=== PATIENT | male | born 1975 | race Caucasian/White ===

== ENCOUNTER 2018-04-26 01:40 | Emergency (ER) | payer BC ==
[2018-04-26] MEDS ORDERED: ALPRAZolam TAB* 0.5 MG PO ONE (01:58)
[2018-04-26 02:16] LABS: ABS Basophils 0.1 10^3/ul (0-0.2); ABS Eosinophils 0.2 10^3/ul (0-0.6); ABS Lymphocytes 3.8 10^3/ul (1.0-4.8); ABS Monocytes 0.7 10^3/ul (0-0.8); ABS Nucleated RBC 0 10^3/ul; Eosinophil % 2.4 % (0-6); Hematocrit 38 % (42-52); Hemoglobin 12.9 g/dl (14.0-18.0); Mean Corpuscular HGB Conc 34 g/dl (31-36); Mean Corpuscular Hemoglobin 31 pg (27-31); Mean Corpuscular Volume 91 fL (80-94); Mean Platelet Volume 7.6 um3 (7.4-10.4); Nucleated Red Blood Cells % 0; Platelet Count 318 10^3/ul (150-450); Red Blood Count 4.18 10^6/ul (4.00-5.40); Red Cell Distribution Width 13 % (10.5-15); White Blood Count 7.7 10^3/ul (3.5-10.8)
[2018-04-26 02:37] LABS: EGFR Non-African American 73.5 (>60)
--- NOTE | 2018-04-26 03:12 | ED ---
J Luis Mcdaniel Angela, scribed for Chely Rojas MD on 04/26/18 at 0154 . Shortness of Breath - HPI Summary HPI Summary: This pt is a 42 y/o presenting to [facility] c/o difficulty catching his breath this morning. Pt states he woke up this morning and suddenly it was hard to catch his breath. He notes he went to bed feeling fine last night. He states he tried going back to sleep but the same thing happened again. Denies any pain, chest pain, fever. Pt currently states feeling the same with SOB. He does admit to being anxious. Pt reports he used to take Lorazepam and Abilify for anxiety in the past, but states he has learned to deal with his anxiety and no longer takes it. Denies hx of asthma. Denies tobacco use. Pt is currently on Methylphenidate. He lives at home with his and 4 kids. - History of Current Complaint Hx Obtained From: Patient Onset/Duration: Sudden Onset, Still Present Timing: Constant Current Severity: Moderate Aggrevating Factors: Nothing Alleviating Factors: Nothing Associated Signs & Symptoms: Negative - Allergy/Home Medications Allergies/Adverse Reactions: Allergies Allergy/AdvReac Type Severity Reaction Status Date / Time No Known Allergies Allergy Unverified 07/09/13 10:30 Home Medications: Home Medications Methylphenidate HCl [Ritalin] 5 mg PO 04/26/18 [History] PMH/Surg Hx/FS Hx/Imm Hx Endocrine/Hematology History: Denies: Hx Diabetes, Hx Thyroid Disease Cardiovascular History: Denies: Hx Hypercholesterolemia, Hx Hypertension, Hx Pacemaker/ICD, Hx Peripheral Vascular Disease Respiratory History: Denies: Hx Asthma History: Denies: Hx Renal Disease Musculoskeletal History: Denies: Hx Arthritis, Hx Rheumatoid Arthritis, Hx Osteoporosis Sensory History: Denies: Hx Cataracts, Hx Contacts or Glasses, Hx Glaucoma, Hx Hearing Aid Opthamlomology History: Denies: Hx Cataracts, Hx Contacts or Glasses, Hx Glaucoma Neurological History: Denies: Hx Headaches, Hx Seizures, Hx Transient Ischemic Attacks (TIA) Psychiatric History: Reports: Hx Anxiety, Hx Attention Deficit Hyperactivity Disorder Denies: Hx Depression, Hx Panic Disorder - Surgical History Surgery Procedure, Year, and Place: APPENDIX,REMOVE CYST IN RIGHT FEMUR X2 20+ YRS AGO, Infectious Disease History: No Infectious Disease History: Denies: Traveled Outside the [place] in Last 30 Days - Family History Known Family History: Negative: Cardiac Disease, Hypertension, Diabetes - Social History Lives: With Family Alcohol Use: None Hx Substance Use: No Hx Tobacco Use: No Review of Systems Negative: Fever, Chills Negative: Chest Pain Positive: Shortness Of Breath Genitourinary: Negative Musculoskeletal: Negative Skin: Negative Positive: Anxious All Other Systems Reviewed And Are Negative: Yes Physical Exam - Summary Physical Exam Summary: VITAL SIGNS: Reviewed. GENERAL: Patient is a well-developed and nourished male who is lying comfortable in the stretcher. Patient is not in any acute respiratory distress. HEAD AND FACE: No signs of trauma. No ecchymosis, hematomas or skull depressions. No sinus tenderness. EYES: PERRLA, EOMI x 2, No injected conjunctiva, no nystagmus. EARS: Hearing grossly intact. Ear canals and tympanic membranes are within normal limits. MOUTH: Oropharynx within normal limits. NECK: Supple, trachea is midline, no adenopathy, no JVD, no carotid bruit, no c- spine tenderness, neck with full ROM. CHEST: Symmetric, no tenderness at palpation LUNGS: Clear to auscultation bilaterally. No wheezing or crackles. CVS: Regular rate and rhythm, S1 and S2 present, no murmurs or gallops appreciated. ABDOMEN: Soft, non-tender. No signs of distention. No rebound no guarding, and no masses palpated. Bowel sounds are normal. EXTREMITIES: FROM in all major joints, no edema, no cyanosis or clubbing. NEURO: Alert and oriented x 3. No acute neurological deficits. Speech is normal and follows commands. SKIN: Dry and warm PSYCH: anxious appearing Triage Information Reviewed: Yes Vital Signs On Initial Exam: Initial Vitals Temp Pulse Resp BP Pulse Ox 98 F 54 20 141/83 98 04/26/18 01:42 04/26/18 01:42 04/26/18 01:42 04/26/18 01:42 04/26/18 01:42 Vital Signs Reviewed: Yes Diagnostics - Vital Signs Vital Signs Temp Pulse Resp BP Pulse Ox 04/26/18 01:42 98 F 54 20 141/83 98 - Laboratory Result Diagrams: 04/26/18 02:04 04/26/18 02:04 Lab Statement: Any lab studies that have been ordered have been reviewed, and results considered in the medical decision making process. - Radiology Chest XR Xray Interpretation: No Acute Changes - No acute process. Pending official radiology report. Radiology Interpretation Completed By: ED Physician Re-Evaluation - Re-Evaluation First Eval Re-Evaluation Time: 02:51 Change: Improved Comment: Pt feels better. He will be discharged home. Course/Dx - Course Assessment/Plan: Pt is a 42 y/o who presents with difficulty catching his breath this morning. Pt states he woke up this morning and suddenly it was hard to catch his breath. He notes he went to bed feeling fine last night. He states he tried going back to sleep but the same thing happened again. Denies any pain , chest pain, fever. Pt currently states feeling the same with SOB. He does admit to being anxious. Pt reports he used to take Lorazepam and Abilify for anxiety in the past, but states he has learned to deal with his anxiety and no longer takes it. Pt is saturating at 100% on room air. Chest XR shows no acute process. Pt has normal lab results. Pt reports feeling better. He states he will take Xanax at home. Pt will be discharged home with follow up from his PCP. He is instructed to return to the ED for any worsening symptoms. - Diagnoses Provider Diagnoses: Anxiety Discharge - Sign-Out/Discharge Documenting (check all that apply): Discharge/Admit/Transfer - Discharge - Discharge Plan Condition: Stable Disposition: HOME Patient Education Materials: Anxiety (ED) Referrals: Minh Glass MD [Primary Care Provider] - Additional Instructions: Please follow up with your primary care provider. RETURN TO EMERGENCY DEPARTMENT FOR ANY NEW OR WORSENING SYMPTOMS. The documentation as recorded by the J Luis smith Angela accurately reflects the service I personally performed and the decisions made by me, Chely Rojas MD.
[2018-04-26 03:23] VITALS: BP 122/93
--- NOTE | 2018-04-26 07:33 | RAD ---
INDICATION: Shortness of breath. COMPARISON: There are no prior studies available for comparison. TECHNIQUE: A portable view of the chest was obtained. FINDINGS: Cardiac and mediastinal contours appear to be within normal limits. The lungs are clear. No pleural effusion is seen. IMPRESSION: NO EVIDENCE FOR ACUTE DISEASE.
== END 2018-04-26 03:20 | disposition home or self-care (01) ==
LOC: ED 01:40
DX: F41.9 Anxiety disorder, unspecified (principal); R06.02 Shortness of breath; F90.9 Attention-deficit hyperactivity disorder, unspecified type
CPT/HCPCS: 36415; 71045; 80053; 85025; 99282; A9270-GY

== ENCOUNTER 2018-12-16 03:44 | Emergency (ER) | payer BC ==
[2018-12-16] MEDS ORDERED: Dexamethasone Oral Solution* 1 MG/ML 10 ML UDC (10 MG) PO ONE (03:59)
[2018-12-16] MEDS ORDERED: Ibuprofen PED LIQ 100 MG/5 ML UDC PO ONE (03:59)
[2018-12-16] MEDS ORDERED: Lidocaine 2% VISCOUS* 15 ML UDC PO ONE (03:59)
--- NOTE | 2018-12-16 04:02 | ED ---
Throat Pain/Nasal Congestion - HPI Summary HPI Summary: This patient is a 43 year old male presenting to [facility] with a chief complaint of throat swelling since waking up this morning. Patient states that he woke up with the sx and was unable to swallow due to the swelling. Patient states he was concerned that the swelling would progress and would block his airway and presented to the ED. Currently, patient states he can breath normally. The pain is rated 4/10 in severity. Symptoms aggravated by nothing. Symptoms alleviated by nothing. Patient denies cough, nasal congestion, rhinorrhea. - History of Current Complaint Chief Complaint: EDThroatPain Time Seen by Provider: 12/16/18 03:49 Hx Obtained From: Patient Onset/Duration: Lasting Hours, Still Present Severity: Mild Associated Signs And Symptoms: Negative: Sinus Discomfort, Nasal Discharge - Allergies/Home Medications Allergies/Adverse Reactions: Allergies Allergy/AdvReac Type Severity Reaction Status Date / Time No Known Allergies Allergy Unverified 12/16/18 03:50 PMH/Surg Hx/FS Hx/Imm Hx Previously Healthy: Yes Endocrine/Hematology History: Denies: Hx Diabetes, Hx Thyroid Disease Cardiovascular History: Denies: Hx Hypercholesterolemia, Hx Hypertension, Hx Pacemaker/ICD, Hx Peripheral Vascular Disease Respiratory History: Denies: Hx Asthma History: Denies: Hx Renal Disease Musculoskeletal History: Denies: Hx Arthritis, Hx Rheumatoid Arthritis, Hx Osteoporosis Sensory History: Denies: Hx Cataracts, Hx Contacts or Glasses, Hx Glaucoma, Hx Hearing Aid Opthamlomology History: Denies: Hx Cataracts, Hx Contacts or Glasses, Hx Glaucoma Neurological History: Denies: Hx Headaches, Hx Seizures, Hx Transient Ischemic Attacks (TIA) Psychiatric History: Reports: Hx Anxiety, Hx Attention Deficit Hyperactivity Disorder Denies: Hx Depression, Hx Panic Disorder - Surgical History Surgery Procedure, Year, and Place: APPENDIX,REMOVE CYST IN RIGHT FEMUR X2 20+ YRS AGO, - Immunization History Date of Tetanus Vaccine: unk Date of Influenza Vaccine: none Infectious Disease History: No Infectious Disease History: Denies: Traveled Outside the [place] in Last 30 Days - Family History Known Family History: Negative: Cardiac Disease, Hypertension, Diabetes - Social History Occupation: Employed Full-time Alcohol Use: None Hx Substance Use: No Substance Use Type: Reports: None Hx Tobacco Use: No Smoking Status (MU): Never Smoked Tobacco Review of Systems Negative: Fever ENT: Negative - Nasal Congestion, Other - Throat swelling Positive: Sore Throat. Negative: Nasal Discharge Negative: Cough All Other Systems Reviewed And Are Negative: Yes Physical Exam - Summary Physical Exam Summary: Appearance: Well appearing, no pain distress Skin: warm, dry, reflects adequate perfusion Head/face: normal Eyes: EOMI, RUPAL ENT: mucous membranes moist, mucous in posterior pharynx, no lymphadenopathy. Neck: supple, non-tender Respiratory: CTA, breath sounds present Cardiovascular: RRR, no strider, pulses symmetrical Abdomen: non-tender, soft Bowel Sounds: present Musculoskeletal: normal, strength/ROM intact Neuro: normal, sensory motor intact, A&Ox3 Triage Information Reviewed: Yes Vital Signs On Initial Exam: Initial Vitals Temp Pulse Resp BP Pulse Ox 97.7 F 72 12 123/91 96 12/16/18 03:49 12/16/18 03:49 12/16/18 03:49 12/16/18 03:49 12/16/18 03:49 Vital Signs Reviewed: Yes Diagnostics - Vital Signs Vital Signs Temp Pulse Resp BP Pulse Ox 12/16/18 03:49 97.7 F 72 12 123/91 96 - Laboratory Lab Statement: Any lab studies that have been ordered have been reviewed, and results considered in the medical decision making process. EENT Course/Dx - Course Course Of Treatment: This patient is a 43 year old male presenting to [facility] with a chief complaint of throat swelling since waking up this morning. Daughter recently diagnosed with strep pharyngitis. Patient's strep test is positive. There is no evidence for abscess. He was treated with relief with ibuprofen liquid and viscous lidocaine. He will start antibiotics. There is no penicillin allergy. Off work. Follow-up primary care physician. - Differential Diagnoses Differential Diagnoses: Other - Peritonsillar abscess, retropharyngeal abscess, viral versus strep pharyngitis/tonsillitis - Diagnoses Provider Diagnoses: Acute streptococcal tonsillitis Discharge - Sign-Out/Discharge Documenting (check all that apply): Patient Departure Patient Received Moderate/Deep Sedation with Procedure: No - Discharge Plan Condition: Improved Disposition: HOME Prescriptions: Amoxicillin PO (*) [Amoxicillin 875 MG (*)] 875 mg PO BID #20 tab Lidocaine 2% VISCOUS* 10 ml .SEE ORDER Q6H PRN #1 btl PRN Reason: Sore Throat Patient Education Materials: Strep Throat (ED) Forms: *Work Release Referrals: Mnih Glass MD [Primary Care Provider] - Additional Instructions: Tylenol, ibuprofen as needed for discomfort. Drink plenty of fluids. Vitamin C may help. Return with unable to swallow liquids, worse, new symptoms or other concerns. - Billing Disposition and Condition Condition: IMPROVED Disposition: Home - Attestation Statements Document Initiated by Marijae: Yes Documenting Scribe: Dex Barnes Provider For Whom Chan is Documenting (Include Credential): Alonzo Amin MD Scribe Attestation: Dex Mcdaniel scribed for Alonzo Amin MD on 12/16/18 at 0440. Scribe Documentation Reviewed: Yes Provider Attestation: The documentation as recorded by the Dex smith accurately reflects the service I personally performed and the decisions made by , Alonzo Amin MD Status of Scribe Document: Viewed
[2018-12-16 04:43] VITALS: BP 134/91
== END 2018-12-16 04:47 | disposition home or self-care (01) ==
LOC: ED 03:44
DX: J03.00 Acute streptococcal tonsillitis, unspecified (principal); J02.9 Acute pharyngitis, unspecified
CPT/HCPCS: 87651; 99283

== ENCOUNTER 2019-06-01 17:54 | Emergency (ER) | payer BC ==
[2019-06-01] MEDS ORDERED: Tetan/Diph/Pertus SYR(Tdap)* 0.5 ML SYR(BOOSTRIX) use SYR contains LATEX IM ONE (17:56)
--- NOTE | 2019-06-01 17:56 | UC ---
Skin Complaint HPI - HPI Summary HPI Summary: 43 yo male presents with puncture wound. He tells me that he is doing work in his basement today and stepped on a nail that went through his shoe. He continued working throughout the day and has had some increased pain. Unsure date of last tetanus. - History of Current Complaint Time Seen by Provider: 06/01/19 17:56 Stated Complaint: STEPPED ON A NAIL Hx Obtained From: Patient Onset/Duration: Sudden Onset Onset Severity: Mild Current Severity: Moderate Pain Intensity: 5 Pain Scale Used: 0-10 Numeric - Allergy/Home Medications Allergies/Adverse Reactions: Allergies Allergy/AdvReac Type Severity Reaction Status Date / Time No Known Allergies Allergy Unverified 06/01/19 18:04 PMH/Surg Hx/FS Hx/Imm Hx - Additional Past Medical History Additional PMH: ADHD - Surgical History Surgical History: Yes Surgery Procedure, Year, and Place: APPENDIX,REMOVE CYST IN RIGHT FEMUR X2 20+ YRS AGO, - Family History Known Family History: Negative: Cardiac Disease, Hypertension, Diabetes - Social History Occupation: Employed Full-time Lives: With Family Alcohol Use: None Substance Use Type: None Smoking Status (MU): Never Smoked Tobacco Review of Systems All Other Systems Reviewed And Are Negative: Yes Constitutional: Positive: Negative Skin: Positive: Other - Puncture wound right foot Respiratory: Positive: Negative Cardiovascular: Positive: Negative Neurovascular: Positive: Negative Neurological: Positive: Negative Psychological: Positive: Negative Physical Exam - Summary Physical Exam Summary: GENERAL: NAD. WDWN. No pain distress. SKIN: RIGHT FOOT: Plantar aspect approx 4th MTP there is a 2mm puncture wound. Clean appearing. No foreign body appreciated. No erythema, edema, or streaking. CHEST: No accessory muscle use. Breathing comfortably and in no distress. CV: Pulses intact. Cap refill <2seconds MSK: Moves all toes NEURO: Alert. PSYCH: Age appropriate behavior. Triage Information Reviewed: Yes Vital Signs: Vital Signs: Temp Pulse Resp BP Pulse Ox 98.4 F 95 12 143/91 97 06/01/19 18:02 06/01/19 18:02 06/01/19 18:02 06/01/19 18:02 06/01/19 18:02 Vital Signs Reviewed: Yes Course/Dx - Course Course Of Treatment: tdap given in the clinic. Will place him on keflex for prophylactic infection. Advised to change the band-aid daily until well healed - Diagnoses Provider Diagnosis: Puncture wound of foot Discharge - Sign-Out/Discharge Documenting (check all that apply): Patient Departure All imaging exams completed and their final reports reviewed: No Studies - Discharge Plan Condition: Stable Disposition: HOME Prescriptions: Cephalexin CAP* [Keflex CAP*] 500 mg PO TID #15 cap Patient Education Materials: Puncture Wound (DC) Referrals: Minh Glass MD [Primary Care Provider] - Additional Instructions: If you develop a fever, shortness of breath, chest pain, new or worsening symptoms - please call your PCP or go to the ED immediately. Your blood pressure was high at todays visit. Please see your primary provider within 4 weeks for recheck and re-evaluation. Cover the area with the band-aid until well healed (likely 3-5 days) - Billing Disposition and Condition Condition: STABLE Disposition: Home - Attestation Statements Provider Attestation: I was available for consult. This patient was seen by the [facility]. The patient was not presented to, seen by, or examined by me. -Padmini
[2019-06-01 18:04] VITALS: BP 143/91
== END 2019-06-01 18:34 | disposition home or self-care (01) ==
LOC: UCEAST 17:54
DX: S91.331A Puncture wound without foreign body, right foot, initial encounter (principal); W45.0XXA Nail entering through skin, initial encounter; Y92.9 Unspecified place or not applicable; F90.9 Attention-deficit hyperactivity disorder, unspecified type
CPT/HCPCS: 90471; 90715; 99212; G0463

== ENCOUNTER 2023-07-12 17:14 | Inpatient (IN) ==
[2023-07-12] MEDS ORDERED: Ondansetron ODT 4 mg TAB 4 MG TAB PO ONE (17:19)
[2023-07-12] MEDS ORDERED: Ondansetron 4 mg VIAL 2 MG/ML 2 ml VIAL IV ONE (17:45)
[2023-07-12] MEDS ORDERED: Lactated Ringers 1000 ml BAG 1,000 ML IV ONE ×2 (17:45→20:34)
[2023-07-12 17:54] LABS: Hematocrit 40.6 % (38-53); Hemoglobin 13.9 g/dL (13.2-16.3); Mean Corpuscular Hemoglobin 30.4 pg (27-33); Mean Corpuscular Hgb Conc 34.3 g/dL (31-36); Mean Corpuscular Volume 88.7 fL (80-97); Mean Platelet Volume 7.7 fL (7.5-11.2); Platelet Count 379 10^3/uL (150-450); Red Blood Count 4.58 10^6/uL (4.06-5.63); Red Cell Distribution Width 13.3 % (12-17); White Blood Count 16.7 10^3/uL (3.6-10.2)
[2023-07-12 17:55] LABS: Albumin 4.4 g/dL (3.2-5.2); Anion Gap 7 mmol/L (2-16); CO2 Carbon Dioxide 26 mmol/L (22-32); Chloride 104 mmol/L (101-111); Potassium 4.3 mmol/L (3.5-5.0); Sodium 137 mmol/L (135-145)
[2023-07-12 18:01] LABS: ALT 40 U/L (7-52); AST 34 U/L (13-39); Albumin/Globulin Ratio 1.5 (1-3); Alkaline Phosphatase 77 U/L (35-149); Blood Urea Nitrogen 25 mg/dL (6-24); C Reactive Protein < 1.00 mg/L (<8.01); Creatinine, Serum 1.18 mg/dL (0.67-1.17); Globulin 2.9 g/dL (2-4); Glucose 107 mg/dL (70-100); Total Protein 7.3 g/dL (6.4-8.9); eGFR CKD-EPI 75.2 (>60)
[2023-07-12] MEDS ORDERED: Droperidol 5 MG/2 ML 2 ML VIAL IV ONE (18:11)
[2023-07-12] MEDS ORDERED: HYDROmorphone 1 MG/1 ML SYRINGE IV ONE (18:15)
[2023-07-12] MEDS ORDERED: Iohexol 350 (CONTRAST) 500 ML MDV IV ONE (18:20)
[2023-07-12 18:26] LABS: Lipase 10599 U/L (11.0-82.0)
[2023-07-12 18:38] LABS: ABS Monocytes 1.7 10^3/uL (0.0-1.1); ABS Neutrophils 10.9 10^3/uL (1.5-7.6); ABS Nucleated RBC 0.01 10^3/ul; Eosinophil % 0.2 %; Lymphocyte % 24.1 %; Nucleated Red Blood Cells % 0.1 /100 WBC (0.0-0.4)
[2023-07-12 20:55] LABS: Urine Appearance Clear; Urine Bilirubin Negative (Negative); Urine Blood Negative (Negative); Urine Color Yellow; Urine Glucose Negative (Negative); Urine Ketones Negative (Negative); Urine Nitrite Negative (Negative); Urine Protein Negative (Negative); Urine Specific Gravity 1.026 (1.002-1.030); Urine Urobilinogen Negative (Negative)
[2023-07-12 21:51] LABS: Magnesium 1.8 mg/dL (1.9-2.7)
[2023-07-12 21:56] LABS: Triglycerides 92 mg/dL
[2023-07-12] MEDS ORDERED: Lactated Ringers 1000 ml BAG 1,000 ML IV SCH (22:00)
[2023-07-12] MEDS ORDERED: Acetaminophen IV 1 GM/100ML 1,000 MG/100 ML BAG IV PRN (22:26)
[2023-07-12] MEDS ORDERED: Magnesium Sulfate 2 gm BAG 2 GM/50 ML BAG IVPB ONE (22:43)
[2023-07-12] MEDS ORDERED: Morphine 2 MG/ML SYRINGE IV PRN (23:12)
[2023-07-12] MEDS ORDERED: Polyethylene Glycol 3350 17 GM PACKET PO PRN (23:34)
[2023-07-13] MEDS: HYDROmorphone 1 MG/1 ML SYRINGE IV SLOW PU PRN ×6 (00:48→23:19)
[2023-07-13] MEDS: Enoxaparin 40 MG/0.4 ML SYR SUBCUT SCH ×2 (00:48→20:13)
[2023-07-13] MEDS ORDERED: HYDROmorphone 1 MG/1 ML SYRINGE IV SLOW PU SCH (02:00)
[2023-07-13] MEDS ORDERED: Ondansetron 4 mg VIAL 2 MG/ML 2 ml VIAL IV PRN (06:22)
[2023-07-13 07:08] LABS: Calcium 7.8 mg/dL (8.6-10.3); Creatinine, Serum 1.02 mg/dL (0.67-1.17); Potassium 4.1 mmol/L (3.5-5.0); eGFR CKD-EPI 89.5 (>60)
[2023-07-13 07:24] LABS: ABS Eosinophils 0.1 10^3/uL (0.0-0.5); ABS Lymphocytes 2.1 10^3/uL (1.0-4.8); ABS Monocytes 0.8 10^3/uL (0.0-1.1); ABS Neutrophils 6.4 10^3/uL (1.5-7.6); ABS Nucleated RBC 0.01 10^3/ul; Eosinophil % 0.8 %; Hematocrit 36.8 % (38-53); Hemoglobin 12.8 g/dL (13.2-16.3); Lymphocyte % 22.8 %; Mean Corpuscular Hemoglobin 31.1 pg (27-33); Mean Corpuscular Hgb Conc 34.8 g/dL (31-36); Mean Corpuscular Volume 89.6 fL (80-97); Mean Platelet Volume 7.9 fL (7.5-11.2); Nucleated Red Blood Cells % 0.1 /100 WBC (0.0-0.4); Platelet Count 322 10^3/uL (150-450); Red Blood Count 4.11 10^6/uL (4.06-5.63); Red Cell Distribution Width 13.1 % (12-17); White Blood Count 9.4 10^3/uL (3.6-10.2)
[2023-07-13] MEDS ORDERED: HYDROmorphone 1 MG/1 ML SYRINGE IV SLOW PU PRN (07:53)
[2023-07-13] MEDS ORDERED: Lactated Ringers 1000 ml BAG 1,000 ML IV SCH (09:28)
[2023-07-13] MEDS: Acetaminophen IV 1 GM/100ML 1,000 MG/100 ML BAG IV PRN ×2 (10:43→19:07)
[2023-07-13] MEDS: Morphine 2 MG/ML SYRINGE IV PRN (10:43)
[2023-07-13] MEDS ORDERED: Lactated Ringers 1000 ml BAG 1,000 ML IV ONE ×2 (13:57→17:25)
[2023-07-13] MEDS: Lactated Ringers 1000 ml BAG 1,000 ML IV SCH ×2 (18:10→22:55)
[2023-07-13 18:41] LABS: Calcium 7.9 mg/dL (8.6-10.3); Creatinine, Serum 1.11 mg/dL (0.67-1.17); Potassium 3.9 mmol/L (3.5-5.0); eGFR CKD-EPI 80.9 (>60)
[2023-07-14] MEDS: Acetaminophen IV 1 GM/100ML 1,000 MG/100 ML BAG IV PRN ×3 (03:11→23:21)
[2023-07-14] MEDS: Lactated Ringers 1000 ml BAG 1,000 ML IV SCH ×5 (03:12→22:31)
[2023-07-14] MEDS: HYDROmorphone 1 MG/1 ML SYRINGE IV SLOW PU PRN ×3 (06:30→20:48)
[2023-07-14] MEDS: Ondansetron 4 mg VIAL 2 MG/ML 2 ml VIAL IV PRN ×3 (06:37→20:48)
[2023-07-14 06:42] LABS: ABS Eosinophils 0.1 10^3/uL (0.0-0.5); ABS Lymphocytes 2.2 10^3/uL (1.0-4.8); ABS Neutrophils 7.9 10^3/uL (1.5-7.6); Eosinophil % 1.3 %; Hematocrit 33.5 % (38-53); Hemoglobin 11.5 g/dL (13.2-16.3); Lymphocyte % 19.1 %; Mean Corpuscular Hemoglobin 30.7 pg (27-33); Mean Corpuscular Hgb Conc 34.2 g/dL (31-36); Mean Corpuscular Volume 89.6 fL (80-97); Mean Platelet Volume 7.8 fL (7.5-11.2); Platelet Count 278 10^3/uL (150-450); Red Blood Count 3.73 10^6/uL (4.06-5.63); White Blood Count 11.3 10^3/uL (3.6-10.2)
[2023-07-14 07:00] LABS: Calcium 7.7 mg/dL (8.6-10.3); Creatinine, Serum 0.94 mg/dL (0.67-1.17); Magnesium 1.7 mg/dL (1.9-2.7); Potassium 3.7 mmol/L (3.5-5.0); eGFR CKD-EPI 98.8 (>60)
[2023-07-14] MEDS: Morphine 2 MG/ML SYRINGE IV PRN ×3 (09:12→18:12)
[2023-07-14] MEDS ORDERED: Magnesium Sulfate 2 gm BAG 2 GM/50 ML BAG IVPB ONE (10:21)
[2023-07-14] MEDS: Prochlorperazine 5 mg/ml 2 ml VIAL (10 mg) IV PRN (10:55)
[2023-07-14] MEDS ORDERED: Lactated Ringers 1000 ml BAG 1,000 ML IV SCH (11:00)
[2023-07-14] MEDS: Enoxaparin 40 MG/0.4 ML SYR SUBCUT SCH (20:48)
[2023-07-15] MEDS: Lactated Ringers 1000 ml BAG 1,000 ML IV SCH ×5 (02:35→20:18)
[2023-07-15] MEDS: Senna TAB 8.6 mg TAB PO PRN ×2 (04:26→20:28)
[2023-07-15] MEDS: Morphine 2 MG/ML SYRINGE IV PRN ×3 (04:27→15:58)
[2023-07-15 06:13] LABS: ABS Eosinophils 0.1 10^3/uL (0.0-0.5); ABS Lymphocytes 1.6 10^3/uL (1.0-4.8); ABS Monocytes 1.1 10^3/uL (0.0-1.1); ABS Neutrophils 7.8 10^3/uL (1.5-7.6); ABS Nucleated RBC 0.01 10^3/ul; Eosinophil % 1.3 %; Hematocrit 31.6 % (38-53); Hemoglobin 11.1 g/dL (13.2-16.3); Lymphocyte % 15.2 %; Mean Corpuscular Hemoglobin 31.6 pg (27-33); Mean Corpuscular Hgb Conc 35.3 g/dL (31-36); Mean Corpuscular Volume 89.5 fL (80-97); Mean Platelet Volume 7.5 fL (7.5-11.2); Platelet Count 248 10^3/uL (150-450); Red Blood Count 3.53 10^6/uL (4.06-5.63); White Blood Count 10.7 10^3/uL (3.6-10.2)
[2023-07-15 06:27] LABS: Calcium 8.2 mg/dL (8.6-10.3); Creatinine, Serum 0.94 mg/dL (0.67-1.17); Potassium 3.9 mmol/L (3.5-5.0); eGFR CKD-EPI 98.8 (>60)
[2023-07-15] MEDS: Acetaminophen IV 1 GM/100ML 1,000 MG/100 ML BAG IV PRN ×2 (10:18→20:28)
[2023-07-15] MEDS ORDERED: HYDROmorphone 1 MG/1 ML SYRINGE IV SLOW PU PRN (13:21)
[2023-07-15] MEDS: Enoxaparin 40 MG/0.4 ML SYR SUBCUT SCH (20:19)
[2023-07-16] MEDS: Lactated Ringers 1000 ml BAG 1,000 ML IV SCH ×4 (00:31→20:06)
[2023-07-16] MEDS: Morphine 2 MG/ML SYRINGE IV PRN ×2 (02:18→05:55)
[2023-07-16] MEDS: Prochlorperazine 5 mg/ml 2 ml VIAL (10 mg) IV PRN ×3 (02:26→16:40)
[2023-07-16 06:54] LABS: ABS Basophils 0.1 10^3/uL (0.0-0.1); ABS Eosinophils 0.2 10^3/uL (0.0-0.5); ABS Lymphocytes 2.7 10^3/uL (1.0-4.8); ABS Monocytes 1.1 10^3/uL (0.0-1.1); ABS Neutrophils 7.3 10^3/uL (1.5-7.6); ABS Nucleated RBC 0.01 10^3/ul; Eosinophil % 2.1 %; Hematocrit 33.5 % (38-53); Hemoglobin 11.3 g/dL (13.2-16.3); Lymphocyte % 23.3 %; Mean Corpuscular Hemoglobin 30.4 pg (27-33); Mean Corpuscular Hgb Conc 33.8 g/dL (31-36); Nucleated Red Blood Cells % 0.1 /100 WBC (0.0-0.4); Platelet Count 301 10^3/uL (150-450); Red Blood Count 3.72 10^6/uL (4.06-5.63); Red Cell Distribution Width 13.2 % (12-17); White Blood Count 11.4 10^3/uL (3.6-10.2)
[2023-07-16 07:09] LABS: Albumin 3.2 g/dL (3.2-5.2); Albumin/Globulin Ratio 1.1 (1-3); Calcium 8.2 mg/dL (8.6-10.3); Creatinine, Serum 0.89 mg/dL (0.67-1.17); Globulin 2.9 g/dL (2-4); Magnesium 1.6 mg/dL (1.9-2.7); Potassium 3.9 mmol/L (3.5-5.0); Total Protein 6.1 g/dL (6.4-8.9); eGFR CKD-EPI 104.4 (>60)
[2023-07-16] MEDS ORDERED: Magnesium Sulfate IV 3 GM in NS 0.9% 100 ml BAG 100 ML IVPB ONE (07:15)
[2023-07-16] MEDS ORDERED: Morphine 2 MG/ML SYRINGE IV PRN (09:35)
[2023-07-16] MEDS: Enoxaparin 40 MG/0.4 ML SYR SUBCUT SCH (20:08)
[2023-07-17] MEDS: Lactated Ringers 1000 ml BAG 1,000 ML IV SCH (04:13)
[2023-07-17 05:52] LABS: ABS Eosinophils 0.2 10^3/uL (0.0-0.5); ABS Lymphocytes 2.2 10^3/uL (1.0-4.8); Hematocrit 30.6 % (38-53); Hemoglobin 10.7 g/dL (13.2-16.3); Lymphocyte % 25.6 %; Mean Corpuscular Hgb Conc 34.9 g/dL (31-36); Mean Corpuscular Volume 88.8 fL (80-97); Mean Platelet Volume 7.1 fL (7.5-11.2); Platelet Count 293 10^3/uL (150-450); Red Blood Count 3.45 10^6/uL (4.06-5.63); Red Cell Distribution Width 12.9 % (12-17); White Blood Count 8.5 10^3/uL (3.6-10.2)
[2023-07-17 05:53] LABS: Eosinophil % 2.5 %
[2023-07-17 06:09] LABS: Calcium 7.7 mg/dL (8.6-10.3); Creatinine, Serum 0.86 mg/dL (0.67-1.17); Magnesium 1.8 mg/dL (1.9-2.7); Potassium 3.8 mmol/L (3.5-5.0); eGFR CKD-EPI 105.5 (>60)
[2023-07-17] MEDS ORDERED: Magnesium Sulfate IV 1GM/100ML 1 GM/100 ML BAG IV ONE ×2 (07:03→08:06)
[2023-07-17 13:43] VITALS: BP 143/84
== END 2023-07-17 15:50 | disposition home or self-care (01) | DRG 282 ==
LOC: ED 17:14 → EDHOLD 20:56 → INTOOBSV 20:56 → SUATTDRO 20:56 → MED 23:54 → SUATTDRO 07-14 17:38
PROVIDERS: ADMIT Internal Medicine; ATTEND Internal Medicine